=== PATIENT | male | born 1985 | race Caucasian/White ===

== ENCOUNTER 2017-01-02 19:05 | Emergency (ER) | payer BC ==
[2017-01-02 19:16] VITALS: BP 158/94; PULSE 59; RESP 16; TEMP 98.5
--- NOTE | 2017-01-02 20:01 | ED ---
Back Pain HPI - General Chief Complaint: Back Pain/Injury Stated Complaint: back and left leg pain Time Seen by Provider: 01/02/17 19:20 Source: patient Limitations: no limitations - History of Present Illness Initial Comments: Patient is a 31-year-old male presenting to the emergency department with chief complaint of acute low back pain. Patient states he was at the gym doing squats about 5 days ago when his left lower back started hurting. Patient states that pain has persisted and is now associated with numbness and tingling radiating down his left anterior leg to just below his left knee. Patient currently rates pain 7 out of 10, described as sharp and burning. Exacerbated with movement, relieved with rest. Patient denies history of similar episode in past. Patient states he doesn't like to take anything for pain. Patient denies any treatment prior to arrival. Patient denies recent illness, fevers, nausea, vomiting, shortness breath, chest pain, or abdominal pain. Patient denies IVDA drug use, urinary or fecal incontinence, or saddle anesthesia. - Related Data Allergies Allergy/AdvReac Type Severity Reaction Status Date / Time clindamycin Allergy Unknown Verified 01/02/17 19:17 Childhood Penicillins Allergy Rash/Hives Verified 01/02/17 19:17 Review of Systems ROS Statement: Those systems with pertinent positive or pertinent negative responses have been documented in the HPI. ROS Other: All systems not noted in ROS Statement are negative. Past Medical History Past Medical History: No Reported History History of Any Multi-Drug Resistant Organisms: None Reported Past Surgical History: Adenoidectomy, Tonsillectomy Additional Past Surgical History / Comment(s): inguinal hernia. thyroglossal duct cyst. Past Psychological History: No Psychological Hx Reported Smoking Status: Never smoker Past Alcohol Use History: None Reported Past Drug Use History: None Reported General Exam - General Exam Comments Initial Comments: GENERAL: Pt awake and alert, well-appearing, well-nourished, and in no acute distress. HEAD: Atraumatic, normocephalic. EYES: Pupils equal, round, sclera anicteric, conjunctiva are normal. ENT: Moist mucous membranes. NECK:Normal range of motion, supple without lymphadenopathy. LUNGS: Breath sounds clear to auscultation bilaterally. No wheezes, rales, or rhonchi. HEART: Heart S1, S2, no S3 or S4. Regular rate and rhythm. No murmurs, rubs or gallops. ABDOMEN: Soft, nontender, nondistended, normoactive bowel sounds. No guarding, no rebound. No masses or organomegaly appreciated. BACK: Patient is able to ambulate without assistance. Patient is seated on the stretcher in mild distress. No surface trauma. No vertebral tenderness. Left paraspinal tenderness to lower back. No spasm or mass. No CVA tenderness to percussion. Left SI notch tenderness. MUSCULOSKELETAL: Decreased flexion, extension, lateral bending, and rotation. Heel and toe walk with good strength. Dorsi and plantarflexion with adequate strength. Straight leg raises are negative for radiculopathy. EXTREMITIES: 2+ peripheral pulses. No edema. No calf tenderness. NEUROLOGICAL: Pt oriented x 3. Cranial nerves II through XII grossly intact. Strength and sensation grossly intact. Sensation to light touch is intact at the great toe web space. PSYCH: Normal mood, normal affect. SKIN: Warm, dry, intact. Normal turgor. No rashes or lesions. Limitations: no limitations Course Vital Signs 01/02/17 19:10 Temperature 98.5 F Pulse Rate 59 L Respiratory 16 Rate Blood Pressure 158/94 O2 Sat by Pulse 100 Oximetry Medical Decision Making - Medical Decision Making Acute lumbar radiculopathy. Lumbar sacral x-ray without acute fracture or dislocation. Patient is refusing pain medication in the emergency department. No red flags present. Patient instructed to follow-up with [facility] and avoid bed rest. Patient instructed to return to the emergency department with any new or worsening symptoms. Patient agrees with treatment plan. - Radiology Data Radiology results: report reviewed X-ray lumbosacral spine: Straightening of lumbar spine with minimal multilevel anterior spurring upper lumbar levels. No evidence of acute fracture or dislocation. Disposition Clinical Impression: Lumbar radiculopathy Disposition: HOME SELF-CARE Condition: Good Instructions: Acute Low Back Pain (ED) Additional Instructions: Continue Tylenol or Motrin for pain as needed. May apply ice or warm compresses for comfort as needed. Avoid bed rest. Follow-up with [facility] as directed. Please return to emergency department with any new or worsening symptoms. Referrals: Deja Banks MD [Primary Care Provider] - 1-2 days Kendall Soto DO [Doctor of Osteopathic Medicine] - 1-2 days Time of Disposition: 20:27
--- NOTE | 2017-01-02 20:20 | XR ---
EXAMINATION TYPE: XR lumbosacral spine min 4V DATE OF EXAM: 01/02/2017 CLINICAL HISTORY: Low back pain causing numbness and left leg TECHNIQUE: Frontal, lateral, and oblique images of the lumbar spine are obtained. COMPARISON: None FINDINGS: There are 5 lumbar type vertebral bodies identified. The lumbar spine shows straightened alignment without evidence of acute fracture or dislocation. Vertebral body heights and disk space he ights are within normal limits. . Minimal multilevel anterior spurring upper lumbar spine is present . The oblique images appear within normal limits. The overlying soft tissue appears unremarkable. IMPRESSION: Straightening of lumbar spine with minimal multilevel anterior spurring upper lumbar leve ls.
== END 2017-01-02 20:33 | disposition home or self-care (01) ==
LOC: EC 19:05
DX: M54.16 Radiculopathy, lumbar region (principal); Z88.0 Allergy status to penicillin; Z88.1 Allergy status to other antibiotic agents
CPT/HCPCS: 72110; 99283

== ENCOUNTER → 2020-12-29 | Outpatient (CLI) | payer OTHER ==
[2020-12-29 16:45] LABS: Basophils # (A) 0.06 X 10*3/uL (0.00-0.10); Eosinophils # (A) 0.48 X 10*3/uL (0.04-0.35); Eosinophils % (A) 8.1 %; HCT 51.1 % (39.6-50.0); HGB 17.1 g/dL (13.0-17.0); Lymphocytes # (A) 1.32 X 10*3/uL (0.90-5.00); Lymphocytes % (A) 22.4 %; MCH 31.1 pg (27.0-32.0); MCHC 33.5 g/dL (32.0-37.0); MCV 93.1 fL (80.0-97.0); Mean Platelet Volume 10.2 fL (9.5-12.2); Monocytes # (A) 0.67 X 10*3/uL (0.20-1.00); Monocytes % (A) 11.4 %; Neutrophils # (A) 3.35 X 10*3/uL (1.80-7.70); Neutrophils % (A) 56.8 %; Platelet Count 215 X 10*3/uL (140-440); RBC 5.49 X 10*6/uL (4.40-5.60); RDW 13.9 % (11.5-14.5)
[2020-12-29 17:08] LABS: African American GFR (CKD) 101.4 (60.0-200.0); Albumin 4.4 g/dL (3.8-4.9); Albumin/Globulin Ratio 1.78 (1.60-3.17); Anion Gap 11.8 mmol/L (4.00-12.00); BUN/Creat Ratio 17.43 Ratio (12.00-20.00); Calcium 9.5 mg/dL (8.7-10.3); Carbon Dioxide 25.3 mmol/L (21.6-31.8); Chol/HDL Ratio 3.35 Ratio; Estradiol 24.9 pg/mL; Globulin 2.5 g/dL (1.6-3.3); HDL Cholesterol 39.4 mg/dL (40.00-60.00); LDL Cholesterol,Calculated 82.3 mg/dL (0.0-131.0); Non-African American GFR(CKD) 87.5 (60.0-200.0); Potassium 4.6 mmol/L (3.5-5.5); Prostate Specific Antigen 0.5 ng/mL (0.00-2.50); T4, Free (Free Thyroxine) 0.99 ng/dL (0.800-1.800); Total Bilirubin 0.6 mg/dL (0.30-1.20); Total Protein 6.8 g/dL (6.2-8.2); Triglycerides 51.5 mg/dL (0.00-149.00); VLDL Calculation 10.3 mg/dL (5.00-40.00)
== END | disposition home or self-care (01) ==
LOC: LABWHC1 09:21
PROVIDERS: ATTEND Nurse Practitioner Family
DX: Z00.00 Encounter for general adult medical examination without abnormal findings (principal); E03.9 Hypothyroidism, unspecified; E29.1 Testicular hypofunction; R35.1 Nocturia
CPT/HCPCS: 36415; 80053; 80061; 82040; 82670; 82672; 84153; 84270; 84403; 84439; 84443; 84481; 85025

== ENCOUNTER 2021-05-29 07:57 | Emergency (ER) | payer OTHER ==
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
--- NOTE | 2021-05-29 09:15 | XR ---
EXAMINATION TYPE: XR chest 2V DATE OF EXAM: 05/29/2021 COMPARISON: NONE HISTORY: Chest pain TECHNIQUE: Frontal and lateral views of the chest are obtained. FINDINGS: There is no focal air space opacity. No evidence for pneumothorax. No pleural effusion. The cardiac silhouette size is within normal limits. The osseous structures are grossly intact. IMPRESSION: 1. No acute cardiopulmonary process.
[2021-05-29 09:44] VITALS: BP 145/87; PULSE 54; RESP 18; TEMP 97.9
== END 2021-05-29 10:25 | disposition home or self-care (01) ==
LOC: EC 07:57
DX: S80.212A Abrasion, left knee, initial encounter (principal); M54.9 Dorsalgia, unspecified; Z88.0 Allergy status to penicillin; Z88.1 Allergy status to other antibiotic agents; V43.52XA Car driver injured in collision with other type car in traffic accident, initial encounter; Y92.410 Unspecified street and highway as the place of occurrence of the external cause
CPT/HCPCS: 71046; 99284

== ENCOUNTER → 2021-06-15 | Outpatient (CLI) | payer OTHER ==
[2021-06-15 14:41] LABS: Basophils # (A) 0.05 X 10*3/uL (0.00-0.10); Basophils % (A) 0.9 %; Eosinophils # (A) 0.49 X 10*3/uL (0.04-0.35); Eosinophils % (A) 8.7 %; HCT 51.7 % (39.6-50.0); HGB 16.7 g/dL (13.0-17.0); Immature Grans, Automated 0.2 %; Lymphocytes # (A) 1.73 X 10*3/uL (0.90-5.00); Lymphocytes % (A) 30.8 %; MCH 30.9 pg (27.0-32.0); MCHC 32.3 g/dL (32.0-37.0); MCV 95.7 fL (80.0-97.0); Mean Platelet Volume 11.6 fL (9.5-12.2); Monocytes # (A) 0.69 X 10*3/uL (0.20-1.00); Monocytes % (A) 12.3 %; NRBC Per 100 WBC 0 /100 WBCS (0.0-0.0); Neutrophils # (A) 2.65 X 10*3/uL (1.80-7.70); Neutrophils % (A) 47.1 %; Platelet Count 172 X 10*3/uL (140-440); WBC 5.62 X 10*3/uL (4.50-10.00)
[2021-06-15 15:23] LABS: African American GFR (CKD) 103.7 (60.0-200.0); Albumin 4.4 g/dL (3.8-4.9); Albumin/Globulin Ratio 1.88 (1.60-3.17); Anion Gap 10.1 mmol/L (10.00-18.00); BUN/Creat Ratio 22.34 Ratio (12.00-20.00); Blood Urea Nitrogen 23.9 mg/dL (9.0-27.0); Calcium 9.7 mg/dL (8.7-10.3); Carbon Dioxide 30.4 mmol/L (20.0-27.5); Globulin 2.4 g/dL (1.6-3.3); HDL Cholesterol 43.6 mg/dL (40.00-60.00); Non-African American GFR(CKD) 89.5 (60.0-200.0); Potassium 4.9 mmol/L (3.5-5.5); T4, Free (Free Thyroxine) 1.1 ng/dL (0.800-1.800); Total Bilirubin 0.5 mg/dL (0.30-1.20); Total Protein 6.8 g/dL (6.2-8.2); Triglycerides 45.5 mg/dL (0.00-149.00)
[2021-06-15 15:38] LABS: Estradiol 20.9 pg/mL
[2021-06-15 15:40] LABS: Chol/HDL Ratio 3.14 Ratio; LDL Cholesterol,Direct Reflex 82.5 mg/dL (0.00-129.00)
== END | disposition home or self-care (01) ==
LOC: LABWHC1 09:17
PROVIDERS: ATTEND Nurse Practitioner Family
DX: Z00.00 Encounter for general adult medical examination without abnormal findings (principal); E03.9 Hypothyroidism, unspecified; E29.1 Testicular hypofunction
CPT/HCPCS: 36415; 80053; 80061; 82670; 83721; 84403; 84439; 84443; 84481; 85025

== ENCOUNTER → 2023-01-21 | Outpatient (CLI) | payer OTHER ==
--- NOTE | 2023-01-21 18:13 | XR ---
EXAMINATION TYPE: XR elbow complete RT DATE OF EXAM: 01/21/2023 5:14 PM CLINICAL INDICATION:Male, 37 years old with history of S53.401A, S46.291A; [facility] COMPARISON: None TECHNIQUE: XR elbow complete RT; elbow was examined in AP, lateral, and oblique projections. FINDINGS: No evidence of any acute osseous pathology, joint dislocation, or soft tissue swelling is n oted. No evidence of joint effusion is present. Small enthesophyte of the olecranon process. Well-co rticated osseous fragment near the medial epicondyle. IMPRESSION: No evidence of acute fracture. Consider further evaluation with MRI for soft tissue injury.
== END | disposition home or self-care (01) ==
LOC: RADXRMAIN 16:55
PROVIDERS: ATTEND Emergency Medicine
DX: S53.401A Unspecified sprain of right elbow, initial encounter (principal); S46.291A Other injury of muscle, fascia and tendon of other parts of biceps, right arm, initial encounter; X58.XXXA Exposure to other specified factors, initial encounter

== ENCOUNTER → 2023-01-25 | Outpatient (CLI) | payer OTHER ==
--- NOTE | 2023-01-29 18:48 | MR ---
EXAMINATION TYPE: MR elbow RT wo con DATE OF EXAM: 01/25/2023 COMPARISON: Right elbow radiograph 01/21/2023 HISTORY: Right elbow pain and swelling, Evaluate for ruptured distal biceps tendon TECHNIQUE: Multiplanar, multisequence images of the right elbow were acquired without contrast. FINDINGS: BONES/JOINTS: Bone marrow signal is normal. Joint spaces are maintained. Articular cartilage is mira l. No joint effusion. LIGAMENTS: The medial ligamentous structures, including the ulnar collateral ligament, are intact. La teral ligamentous structures are intact. TENDONS: The biceps tendon is completely torn at the radial tuberosity; the tendon is coiled and retr acted 9 cm. Edema within the biceps brachia muscle. The brachialis tendon is intact. Distal triceps t endon is intact. The common extensor tendon is normal. The common flexor tendon demonstrates small am ount of intrasubstance edema, relating to tendinosis. NEUROVASCULAR: Normal neurovascular structures. Cubital tunnel is normal. SOFT TISSUES: Large amount of edema within the antecubital fossa and subcutaneous fat.. No bursal dis tention. IMPRESSION: 1. Complete retracted tear distal biceps tendon. 2. Common flexor tendinosis.
== END | disposition home or self-care (01) ==
LOC: RADMRIMAIN 16:59
PROVIDERS: ATTEND Orthopaedic Surgery
DX: S46.211A Strain of muscle, fascia and tendon of other parts of biceps, right arm, initial encounter (principal); M67.823 Other specified disorders of tendon, right elbow

== ENCOUNTER 2023-02-02 10:57 | Day surgery (SDC) | payer OTHER ==
--- NOTE | 2023-01-31 08:42 | P.HPOR ---
History of Present Illness H&P Date: 01/31/23 Subjective: This is a 37 year old male that presents today for initial evaluation regarding a right elbow injury that occurred on 01/21/23 when he was at work twisting a valve and felt a pop in his elbow and had immediate pain, swelling, and bruising after. He was seen by Dr. Morelos and MRI was ordered for concern of possible distal biceps tendon rupture. 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 Physical Examination: RUE: AIN/PIN/Radial/Ulnar/Median motor intact. Radial/Ulnar/Median SILT. 2+/4 Radial/Ulnar pulses palpated. 5/5 APB, 5/5 FDI. Positive Hook test in antecubital fossa with bruising/swelling present along medial forearm. Imaging: MRI of the right elbow performed on 01/25/23 is read and interpreted by myself and demonstrates a complete distal biceps tendon rupture with 9cm of retraction . Impression: 1.)Right distal biceps tendon rupture Plan: Diagnosis and treatment options were discussed with the patient including operative and non operative options. Due to his high activity demands and age I recommend surgical intervention with right distal biceps tendon rupture repair. Risks and benefits of surgery including bleeding, infection, damage to surrounding tissue, need for further surgery, residual numbness in forearm were discussed and the patient wished to go forward with surgery. 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 We discussed post operative protocol with early range of motion depending on the tension on the repair but he is to avoid any lifting heavier than 3 lbs for the first 3 months with a focus on ROM between weeks 1 and 6 after surgery. The patient was agreeable with this plan. CC:Agueda Hays DO -Tigre Duggan DO Orthopedic Hand/Upper Extremity Surgeon Past Medical History Past Medical History: No Reported History History of Any Multi-Drug Resistant Organisms: None Reported Past Surgical History: Adenoidectomy, Tonsillectomy Additional Past Surgical History / Comment(s): inguinal hernia. thyroglossal duct cyst. Past Psychological History: No Psychological Hx Reported Smoking Status: Never smoker Past Alcohol Use History: None Reported Past Drug Use History: None Reported Medications and Allergies Home Medications Medication Instructions Recorded Confirmed Type Ibuprofen [Motrin] 600 mg PO Q6HR PRN #40 day 05/29/21 Rx methocarbamoL [Robaxin] 1,000 mg PO TID PRN 5 Days #30 tab 05/29/21 Rx Allergies Allergy/AdvReac Type Severity Reaction Status Date / Time clindamycin Allergy Unknown Verified 05/29/21 08:01 Childhood Penicillins Allergy Rash/Hives Verified 05/29/21 08:01 Physical Examination Osteopathic Statement: *. No significant issues noted on an osteopathic structural exam other than those noted in the History and Physical/Consult.
[~2023-02-02 10:57] MED LIST: DEXAMETHASONE SOD PHOSPHATE 4 MG/ML 1 ML VIAL IV ONE; HYDROmorphone 0.5 MG/0.5 ML SYRINGE IVP PRN; LACTATED RINGERS 1,000 ML IV SCH; ONDANSETRON 4 MG/2 ML VIAL IVP ONE
[2023-02-02] MEDS ORDERED: BUPIVACAINE (PF) 0.5% 30 ML VIAL INTRAARTIC ONE ×2 (11:20→13:21)
[2023-02-02] MEDS ORDERED: HYDROmorphone (PF) 1 MG/ML ONE (11:27)
[2023-02-02] MEDS ORDERED: PHENYLEPHRINE-0.9% NACL SYG 1,000 MCG/10 ML SYRINGE ONE (11:27)
[2023-02-02] MEDS ORDERED: MIDAZOLAM 2 MG/2 ML VIAL ONE (11:27)
[2023-02-02] MEDS ORDERED: LIDOCAINE 1% INJ 10MG/ML (20 ML MDV) ONE (11:27)
[2023-02-02] MEDS ORDERED: fentaNYL (PF) 50 MCG/ML 2 ML AMP ONE (11:27)
[2023-02-02] MEDS ORDERED: KETOROLAC 15 MG/ML 1 ML VIAL ONE (11:27)
[2023-02-02] MEDS ORDERED: PROPOFOL 10 MG/ML 20 ML VIAL IV ONE (11:27)
[2023-02-02] MEDS ORDERED: LACTATED RINGERS 1,000 ML IV ONE (12:59)
--- NOTE | 2023-02-02 13:40 | P.OP ---
Date of Procedure: 02/02/23 Preoperative Diagnosis: Right distal biceps tendon rupture Postoperative Diagnosis: Right distal biceps tendon rupture Procedure(s) Performed: Right distal biceps tendon repair Implants: Arthrex distal biceps suture button Anesthesia: EBONYA Surgeon: Tigre Duggan Dipper Operator #1: Ashok Villaseñor Estimated Blood Loss (ml): 0 Pathology: none sent Condition: stable Disposition: PACU Description of Procedure: This is a 37 year old male with a history of a right distal biceps tendon rupture that occurred while twisting a valve. He presents today for right distal biceps tendon avulsion repair. Risks and benefits of surgery were discussed with the patient including bleeding, damage to surrounding tissue, infection, paresthesias, need for further surgery as well as risks of anesthesia including pulmonary embolism and even and the patient wished to proceed with surgical intervention. The patients was seen in the pre-operative area by myself. Consent and H&P were completed and updated. The correct extremity was marked in the pre-operative area by myself and all other questions were answered. Patient received an upper extremity nerve block by the department of anesthesia. He then was brought to the operating room by the department of anesthesia. He was transferred to the operative table and a rolling hand table was brought to the side of the operative extremity. The patient was then drifted off to sleep by the department of anesthesia. A nonsterile tourniquet was then applied to the operative extremity and the right upper extremity was then prepped and draped in normal sterile fashion. Pre-operative time out was performed indicating the correct patient, procedure and laterality. All in the room agreed. Pre-operative antibiotics were given prior to skin incision. The operative extremity was the exsanguinated with an esmarch bandage and the tourniquet was inflated to 250mmHg. 15 blade scalpel was used to make a 4cm transverse incision 3 cm distal to the anterior elbow antecubital fossa crease. Blunt dissection was then performed in subcutaneous tissues, retractors were placed taking care to not put excessive force laterally to avoid pressure on the LABCN. Seroma was identified and the distal end of the biceps tendon was identified just proximal to the bicipital grove with adhesions formed to the surrounding lesley and vascular structures which were carefully dissected, the end of the tendon was then grasped with an Tamra clamp. Edges were trimmed of degenerative tissue to create a more profiled distal tip. A number 2 looped fiberwire was then used to sequentially grasp the tendon starting 2.5cm proximal to the distal end. The last stitch was placed in a locking fashion. Tendon sizer was then utilized the distal tendon was able to fit through a 7mm hole. Attention was then brought back to the antecubital fossa and deeper dissection was taken down to the radial tuberosity. Tendon remnants were debrided carefully with rongeur. The forearm was then maximally supinated to reveal the bicipital tuberosity on the radius in order to move the PIN nerve as far radial as possible. A 3.2mm guide pin was then inserted bicortically into the radial tuberosity aimed 30 degrees ulnarly to avoid PIN damage. Correct placement was then confirmed on flouroscopy. A 8mm drill was then used to drill the near cortex only. The wound was then copiously irrigated. The free ends of the suture where then passed through the arthrex cortical button to engage the tension slide mechanism. Cortical button was placed into the button inserted and inserted through the drill hole and deployed. Tension was then applied to snug the cortical button flush against the dorsal cortex. The free suture limbs were then tensioned to fully dock the tendon in the bone tunnel. A free needle was then used to pass one limb through the tendon and a knot was tied. Mini C arm was then used to confirm that the button had flipped and was lying flush against the cortex. The wound was then irrigated. Closure was performed with interrupted 4-0 monocryl suture followed by a running subcuticular suture. Exofin glue was then applied to the wound. 4x4s, webril and a posterior splint with the elbow in slight flexion was applied. The tourniquet was let down and the hand had immediate normal perfusion. The patient was then woken and transferred to PACU in stable condition. Ashok GIMENEZ was present for the case and aided in ass istance in hardware placement and protection of vital neurovascular structures. Tigre Duggan DO Orthopedic Hand/Upper Extremity Surgeon
[2023-02-02 14:16] VITALS: RESP 16; TEMP 98.6
[2023-02-02 16:26] VITALS: BP 133/78; PULSE 79
== END 2023-02-02 15:50 | disposition home or self-care (01) ==
LOC: OR 10:57
PROVIDERS: ATTEND Orthopaedic Surgery Hand Surgery
DX: S46.211A Strain of muscle, fascia and tendon of other parts of biceps, right arm, initial encounter (principal); E07.9 Disorder of thyroid, unspecified; Z98.890 Other specified postprocedural states; Z79.899 Other long term (current) drug therapy; Z88.0 Allergy status to penicillin; Z88.1 Allergy status to other antibiotic agents; X58.XXXA Exposure to other specified factors, initial encounter
CPT/HCPCS: 24342; C1713; J2250; J1100; J0690; J2405; J2001; J3010; J1170; J1885; J2704; J2371; J0665

== ENCOUNTER 2023-05-01 10:57 | Observation (INO) | payer OTHER ==
--- NOTE | 2023-05-01 11:25 | ED ---
General Adult HPI - General Chief complaint: Abdominal Pain Stated complaint: diarrhea Time Seen by Provider: 05/01/23 11:09 Source: patient, family, RN notes reviewed Mode of arrival: ambulatory Limitations: no limitations - History of Present Illness Initial comments: Patient is a pleasant 37-year-old male presenting to the emergency department with concerns with abdominal symptoms. Onset of symptoms was 3 days ago. Patient has had fever for the first 2 days. Patient is having multiple episodes of diarrhea. No nausea or vomiting. Patient does have abdominal discomfort. Discomfort is mild at this time. Discomfort is mostly with diarrhea and cramping. Patient also has discomfort in his back with the symptoms which is similar to previous problems years ago with diarrhea. - Related Data Home Medications Medication Instructions Recorded Confirmed Levothyroxine Sodium 100 mcg PO QAM 01/31/23 02/02/23 Liothyronine Sodium 25 mcg PO QAM 01/31/23 02/02/23 Allergies Allergy/AdvReac Type Severity Reaction Status Date / Time clindamycin Allergy Unknown Verified 02/02/23 11:18 Childhood Penicillins Allergy Rash/Hives Verified 02/02/23 11:18 Review of Systems ROS Statement: Those systems with pertinent positive or pertinent negative responses have been documented in the HPI. ROS Other: All systems not noted in ROS Statement are negative. Constitutional: Reports: as per HPI, fever Eyes: Denies: eye pain ENT: Denies: ear pain Respiratory: Denies: cough, dyspnea Cardiovascular: Denies: chest pain Endocrine: Denies: fatigue Gastrointestinal: Reports: as per HPI, diarrhea. Denies: vomiting Past Medical History Past Medical History: Thyroid Disorder Additional Past Medical History / Comment(s): Hypogonadism History of Any Multi-Drug Resistant Organisms: None Reported Past Surgical History: Adenoidectomy, Ear Surgery, Hernia Repair, Orthopedic Surgery, Tonsillectomy Additional Past Surgical History / Comment(s): Bilateral myringotomy and tubes with hyroglossal duct cyst, L inguinal hernia, L knee fracture/surgery Past Anesthesia/Blood Transfusion Reactions: No Reported Reaction Past Psychological History: No Psychological Hx Reported Smoking Status: Never smoker - Past Family History Father Family Medical History: Hypertension Mother Family Medical History: Hyperlipidemia, Hypertension General Exam Limitations: no limitations General appearance: alert, in no apparent distress Head exam: Present: normocephalic Eye exam: Present: normal appearance Neck exam: Present: normal inspection Respiratory exam: Present: normal lung sounds bilaterally Cardiovascular Exam: Present: regular rate, normal rhythm Expanded Peripheral pulses: 2+: Posterior Tibialis (R), Posterior Tibialis (L) GI/Abdominal exam: Present: soft, tenderness (Mild tenderness lower abdomen) Extremities exam: Present: normal inspection Neurological exam: Present: alert Psychiatric exam: Present: normal affect, normal mood Skin exam: Present: normal color Course Vital Signs 05/01/23 11:03 Temperature 98.8 F Pulse Rate 77 Respiratory 20 Rate Blood Pressure 148/100 O2 Sat by Pulse 98 Oximetry Medical Decision Making - Medical Decision Making Was pt. sent in by a medical professional or institution (, PA, DRUM SANDER SETTER, urgent care, hospital, or fdc...) When possible be specific @ -No Did you speak to anyone other than the patient for history (EMS, parent, family, police, friend...)? What history was obtained from this source @ - is present and helps provide history including onset Did you review nursing and triage notes (agree or disagree)? Why? @ -I reviewed and agree with nursing and triage notes Were old charts reviewed (outside hosp., previous admission, EMS record, old EKG, old radiological studies, urgent care reports/EKG's, fdc records)? Report findings @ -No old charts were reviewed Differential Diagnosis (chest pain, altered mental status, abdominal pain women, abdominal pain men, vaginal bleeding, weakness, fever, dyspnea, syncope, headache, dizziness, GI bleed, back pain, seizure, CVA, palpatations, mental hea lth, musculoskeletal)? @ -Differential Abdominal Pain Men: Appendicitis, cholecystitis, diverticulosis, ischemic bowel, pancreatitis, hepatitis, UTI, gastroenteritis, AAA, incarcerated hernia, bowel obstruction, constipation, inflammatory bowel, hepatitis, peptic ulcer disease, splenic infarction, perforated viscus, testicular torsion, this is not meant to be an all-inclusive list EKG interpreted by me (3pts min.). @ -As above X-rays interpreted by me (1pt min.). @ -None done CT interpreted by me (1pt min.). @ -CT scan shows colon wall thickening U/S interpreted by me (1pt. min.). @ -None done What testing was considered but not performed or refused? (CT, X-rays, U/S, labs)? Why? @ -None What meds were considered but not given or refused? Why? @ -None Did you discuss the management of the patient with other professionals (professionals i.e. , PA, DRUM SANDER SETTER, lab, RT, psych nurse, social media content specialist, vice president mission integration, teacher, biological technical officer, caser up)? Give summary @ - Dr. Meza, who I am a covering doctor and Was smoking cessation discussed for >3mins.? @ -No Was critical care preformed (if so, how long)? @ -No Were there social determinants of health that impacted care today? How? (H omelessness, low income, unemployed, alcoholism, drug addiction, transportation, low edu. Level, literacy, decrease access to med. care, longterm, rehab)? @ -No Was there de-escalation of care discussed even if they declined (Discuss DNR or withdrawal of care, Hospice)? DNR status @ -No What co-morbidities impacted this encounter? (DM, HTN, Smoking, COPD, CAD, Cancer, CVA, ARF, Chemo, Hep., AIDS, mental health diagnosis, sleep apnea, morbid obesity)? @ -None Was patient admitted / discharged? Hospital course, mention meds given and route, prescriptions, significant lab abnormalities, going to OR and other pertinent info. @ -Patient presents with abdominal pain and diarrhea. CT scan shows colitis. Patient is having some bleeding in the emergency department and will be kept. Admission orders written. Undiagnosed new problem with uncertain prognosis? @ -No Drug Therapy requiring intensive monitoring for toxicity (Heparin, Nitro, Insulin, Cardizem)? @ -No Were any procedures done? @ -No Diagnosis/symptom? @ -Colitis Acute, or Chronic, or Acute on Chronic? @ -Acute Uncomplicated (without systemic symptoms) or Complicated (systemic symptoms)? @ -Default Side effects of treatment? @ -No Exacerbation, Progression, or Severe Exacerbation? @ -No Poses a threat to life or bodily function? How? (Chest pain, USA, ID, pneumonia, PE, COPD, DKA, ARF, appy, cholecystitis, CVA, Diverticulitis, Homicidal, Suicidal, threat to staff... and all critical care pts) @ -No - Lab Data Result diagrams: 05/01/23 11:26 05/01/23 11:26 Lab Results 02/02/1105/01/23 05/01/23 Range/Units 11:26 11:26 11:26 WBC 8.2 (3.8-10.6) k/uL RBC 5.46 (4.30-5.90) m/uL Hgb 16.6 (13.0-17.5) gm/dL Hct 48.8 (39.0-53.0) % MCV 89.4 (80.0-100.0) fL MCH 30.4 (25.0-35.0) pg MCHC 34.0 (31.0-37.0) g/dL RDW 13.8 (11.5-15.5) % Plt Count 153 (150-450) k/uL MPV 7.2 Neutrophils % 69 % Lymphocytes % 14 % Monocytes % 12 % Eosinophils % 1 % Basophils % 0 % Neutrophils # 5.6 (1.3-7.7) k/uL Lymphocytes # 1.1 (1.0-4.8) k/uL Monocytes # 1.0 (0-1.0) k/uL Eosinophils # 0.1 (0-0.7) k/uL Basophils # 0.0 (0-0.2) k/uL PT 11.1 (10.0-12.5) sec INR 1.0 (<1.2) APTT 25.5 (22.0-30.0) sec Sodium 137 (137-145) mmol/L Potassium 5.1 (3.5-5.1) mmol/L Chloride 105 (98-107) mmol/L Carbon Dioxide 26 (22-30) mmol/L Anion Gap 6 mmol/L BUN 13 (9-20) mg/dL Creatinine 0.93 (0.66-1.25) mg/dL Est GFR (CKD-EPI)AfAm >90 (>60 ml/min/1.73 sqM) Est GFR (CKD-EPI)NonAf >90 (>60 ml/min/1.73 sqM) Glucose 91 (74-99) mg/dL Calcium 9.0 (8.4-10.2) mg/dL Total Bilirubin 0.8 (0.2-1.3) mg/dL AST 74 H (17-59) U/L ALT 62 H (4-49) U/L Alkaline Phosphatase 34 L (38-126) U/L Total Protein 7.1 (6.3-8.2) g/dL Albumin 3.9 (3.5-5.0) g/dL Amylase 47 (30-110) U/L Lipase 84 (23-300) U/L Disposition Clinical Impression: Colitis Disposition: ADMITTED IP TO THIS HOSP Is patient prescribed a controlled substance at d/c from ED?: No Time of Disposition: 15:31
[2023-05-01] MEDS: PANTOPRAZOLE 40 MG/10 ML VIAL IVP STA (11:33)
[2023-05-01] MEDS: SODIUM CHLORIDE 0.9% 1,000 ML IV STA (11:33)
[2023-05-01] MEDS: DICYCLOMINE 10 MG CAP PO STA (11:33)
[2023-05-01 11:34] LABS: Basophils % (A) 0 %; Eosinophils # (A) 0.1 k/uL (0-0.7); Eosinophils % (A) 1 %; HCT 48.8 % (39.0-53.0); HGB 16.6 gm/dL (13.0-17.5); Lymphocytes # (A) 1.1 k/uL (1.0-4.8); Lymphocytes % (A) 14 %; MCH 30.4 pg (25.0-35.0); MCV 89.4 fL (80.0-100.0); Mean Platelet Volume 7.2; Monocytes % (A) 12 %; Neutrophils # (A) 5.6 k/uL (1.3-7.7); Neutrophils % (A) 69 %; Platelet Count 153 k/uL (150-450); RBC 5.46 m/uL (4.30-5.90); RDW 13.8 % (11.5-15.5); WBC 8.2 k/uL (3.8-10.6)
[2023-05-01 11:44] LABS: ALT 62 U/L (4-49); African American GFR (CKD) >90 (>60 ml/min/1.73 sqM); Albumin 3.9 g/dL (3.5-5.0); Amylase 47 U/L (30-110); Anion Gap 6 mmol/L; Blood Urea Nitrogen 13 mg/dL (9-20); Carbon Dioxide 26 mmol/L (22-30); Chloride 105 mmol/L (98-107); Glucose 91 mg/dL (74-99); Lipase 84 U/L (23-300); Non-African American GFR(CKD) >90 (>60 ml/min/1.73 sqM); Partial Thromboplastin Time 25.5 sec (22.0-30.0); Prothrombin Time 11.1 sec (10.0-12.5); Sodium 137 mmol/L (137-145); Total Bilirubin 0.8 mg/dL (0.2-1.3); Total Protein 7.1 g/dL (6.3-8.2)
[2023-05-01 11:48] LABS: AST 74 U/L (17-59); Alkaline Phosphatase 34 U/L (38-126); Potassium 5.1 mmol/L (3.5-5.1)
--- NOTE | 2023-05-01 15:01 | CT ---
EXAMINATION TYPE: CT abdomen pelvis w con CT DLP: 1406.6 mGycm, Automated exposure control for dose reduction was used. DATE OF EXAM: 05/01/2023 2:54 PM COMPARISON: CT abdomen pelvis most recent from CLINICAL INDICATION:Male, 37 years old with history of abdominal pain. TECHNIQUE: Axial CT of the abdomen and pelvis. Sagittal and coronal reformats were created on a [employer] workstation. Contrast used:100 ml mL of Isovue 300 with IV Contrast, (none if empty) Oral contrast used: without Oral Contrast (none if empty) FINDINGS: LOWER CHEST: Unremarkable ABDOMEN LIVER: Unremarkable GALLBLADDER AND BILE DUCTS: Unremarkable. PANCREAS: Unremarkable. SPLEEN: Unremarkable. ADRENAL GLANDS: Unremarkable. KIDNEYS AND URETERS: No evidence of hydronephrosis or renal calculus. The ureters are unremarkable. PELVIS BLADDER: Unremarkable REPRODUCTIVE: Unremarkable. ABDOMEN & PELVIS STOMACH AND BOWEL: Stomach and duodenum are unremarkable. Diffuse mild colonic wall thickening with e dematous changes, associated prominence of the pericolonic vasculature is identified No evidence of b owel obstruction. PERITONEUM/RETROPERITONEUM: No evidence of pneumoperitoneum or free fluid. VASCULATURE: No evidence of aortic aneurysm. MUSCULOSKELETAL: Remote compression deformities of the T12 vertebral body with approximately 50% heig ht loss. Moderate disc degeneration changes are present throughout the thoracolumbar spine. LYMPH NODES: Prominent nonenlarged mesenteric lymph nodes are identified SOFT TISSUE/ABDOMINAL WALL: Unremarkable IMPRESSION: 1. Diffuse colonic wall thickening with associated edema. Findings are most likely related to underl jim infectious/inflammatory colitis. 2. Remote compression deformity of the T12 vertebral body with 50% height loss.
[2023-05-01] MEDS ORDERED: NALOXONE 0.4 MG/ML 1 ML VIAL IV PRN (15:42)
[2023-05-01] MEDS ORDERED: HYDROcodone/APAP 5-325MG 1 EACH TAB PO PRN (15:42)
[2023-05-01] MEDS ORDERED: traMADol 50 MG TAB PO PRN (15:42)
[2023-05-01] MEDS ORDERED: HYDROmorphone 1 MG/ML 1 ML SYRINGE IVP PRN (15:42)
[2023-05-01] MEDS: SODIUM CHLORIDE 0.9% 1,000 ML IV SCH (16:12)
[2023-05-01 21:05] LABS: HCT 46.9 % (39.0-53.0); HGB 15.5 gm/dL (13.0-17.5); MCV 90.8 fL (80.0-100.0); Mean Platelet Volume 7.5; Platelet Count 148 k/uL (150-450); RBC 5.17 m/uL (4.30-5.90); RDW 13.8 % (11.5-15.5); WBC 6.7 k/uL (3.8-10.6)
[2023-05-01] MEDS: PANTOPRAZOLE 40 MG/10 ML VIAL IV SCH (21:21)
[2023-05-01 22:04] LABS: Eosinophils # (M) 0.13 k/uL (0-0.7); Lymphocytes # (M) 0.94 k/uL (1.0-4.8); Monocytes # (M) 1.61 k/uL (0-1.0); Neutrophils # (M) 4.02 k/uL (1.3-7.7); Neutrophils % (M) 60 %; Nucleated Red Blood Cells 0 /100 WBC (0-0); Total Cells Counted 100
[2023-05-02 02:32] VITALS: RESP 16
[2023-05-02] MEDS ORDERED: PANTOPRAZOLE 40 MG/10 ML VIAL IV SCH (09:00)
[2023-05-02] MEDS: LEVOTHYROXINE 100 MCG TAB PO SCH (10:52)
[2023-05-02] MEDS: LIOTHYRONINE SODIUM 5 MCG TAB PO SCH (10:52)
[2023-05-02 11:01] LABS: Basophils # (A) 0.03 X 10*3/uL (0.00-0.10); Basophils % (A) 0.5 %; Eosinophils # (A) 0.13 X 10*3/uL (0.04-0.35); HCT 47.8 % (39.6-50.0); Lymphocytes # (A) 1.21 X 10*3/uL (0.90-5.00); Lymphocytes % (A) 18.9 %; MCH 29.9 pg (27.0-32.0); MCHC 33.5 g/dL (32.0-37.0); MCV 89.2 FL (80.0-97.0); Mean Platelet Volume 9.6 FL (9.5-12.2); Monocytes # (A) 1.19 X 10*3/uL (0.20-1.00); Monocytes % (A) 18.6 %; NRBC Per 100 WBC 0 X 10*3/uL (0.00-0.01); Neutrophils # (A) 3.83 X 10*3/uL (1.80-7.70); Neutrophils % (A) 59.8 %; Platelet Count 177 X 10*3/uL (140-440); RBC 5.36 X 10*6/uL (4.40-5.60); RDW 13.9 % (11.5-14.5)
[2023-05-02] MEDS: metroNIDAZOLE-NS PMX 500 MG in SALINE 1 100ML.BAG IVPB SCH (11:04)
[2023-05-02 11:11] LABS: Blood Urea Nitrogen 9.9 mg/dL (9.0-27.0); Glucose 85 mg/dL (70-110)
[2023-05-02 11:12] LABS: ALT 46 U/L (10-49); AST 29 U/L (14-35); Albumin 3.8 g/dL (3.8-4.9); Albumin/Globulin Ratio 1.58 Ratio (1.60-3.17); Alkaline Phosphatase 43 U/L (41-126); Carbon Dioxide 26.7 mmol/L (21.6-31.8); Chloride 101 mmol/L (96-109); Globulin 2.4 g/dL (1.6-3.3); Potassium 4.3 mmol/L (3.5-5.5); Sodium 138 mmol/L (135-145); Total Bilirubin 0.5 mg/dL (0.3-1.2); Total Protein 6.2 g/dL (6.2-8.2)
--- NOTE | 2023-05-02 11:52 | P.HPIM ---
History of Present Illness H&P Date: 05/02/23 History of present illness; patient 37-year-old gentleman past medical significant for hypothyroidism from the ER because of abdominal pain. Patient stated the symptoms started 3 days ago when he started experiencing cramping abdominal pain. Abdominal pain was generalized, associated with multiple bouts of diarrhea, patient was complaining of blood in the stools.. There was complaint of fever but no chills. Denied any nausea or vomiting. There was no complaint of chest pain or shortness of breath. No complaint of sick contacts. Because of the symptoms, patient went to the ER Initial lab work done in the ER showed WBC 8.2, hemoglobin 16.6, platelet count 153, sodium 137, calcium 5.1, BUN 13, creatinine 0.93, glucose 91, CT abdominal pelvis done showed diffuse colonic wall thickening with associated edema, associated infectious colitis Patient admitted to internal medicine service REVIEW OF SYSTEMS: CONSTITUTIONAL: As mentioned above HEENT: No recent visual problems or hearing problems. Denied any sore throat. CARDIOVASCULAR: No chest pain, orthopnea, PND, no palpitations, no syncope. PULMONARY: No shortness of breath, no cough, no hemoptysis. GASTROINTESTINAL: As mentioned above NEUROLOGICAL: No headaches, no weakness, no numbness. HEMATOLOGICAL: Denies any bleeding or petechiae. GENITOURINARY: Denies any burning micturition, frequency, or urgency. MUSCULOSKELETAL/RHEUMATOLOGICAL: Denies any joint pain, swelling, or any muscle pain. ENDOCRINE: Denies any polyuria or polydipsia. The rest of the 14-point review of systems is negative. PHYSICAL EXAMINATION: GENERAL: The patient is alert and oriented x3, not in any acute distress. Well developed, well nourished. HEENT: Pupils are round and equally reacting to light. EOMI. No scleral icterus. No conjunctival pallor. Normocephalic, atraumatic. No pharyngeal erythema. No thyromegaly. CARDIOVASCULAR: S1 and S2 present. No murmurs, rubs, or gallops. PULMONARY: Chest is clear to auscultation, no wheezing or crackles. ABDOMEN: Soft, nontender, nondistended, normoactive bowel sounds. No palpable organomegaly. MUSCULOSKELETAL: No joint swelling or deformity. EXTREMITIES: No cyanosis, clubbing, or pedal edema. NEUROLOGICAL: Gross neurological examination did not reveal any focal deficits. SKIN: No rashes. Assessment and plan Acute colitis Hypothyroidism Monitor vital signs Monitor CBC Monitor CMP Continue IV fluids continue antiemetics Continue Bentyl Start Flagyl Ordered for stool for C. difficile Consult GI Labs and medication were reviewed.. Continue same treatment. Continue with symptomatic treatment. Resume home medication. Monitor labs and vitals. DVT and GI prophylaxis. Further recommendations as per clinical course of the patient Dictation was produced using [employer] dictation software. please excuse any grammatical, word or spelling errors. Past Medical History Past Medical History: Thyroid Disorder Additional Past Medical History / Comment(s): Hypogonadism History of Any Multi-Drug Resistant Organisms: None Reported Past Surgical History: Adenoidectomy, Ear Surgery, Hernia Repair, Orthopedic Surgery, Tonsillectomy Additional Past Surgical History / Comment(s): Bilateral myringotomy and tubes with hyroglossal duct cyst, L inguinal hernia, L knee fracture/surgery Past Anesthesia/Blood Transfusion Reactions: No Reported Reaction Past Psychological History: No Psychological Hx Reported Additional Psychological History / Comment(s): Resides with spouse and children Smoking Status: Never smoker Past Alcohol Use History: None Reported Past Drug Use History: None Reported - Past Family History Father Family Medical History: Hypertension Mother Family Medical History: Hyperlipidemia, Hypertension Medications and Allergies Home Medications Medication Instructions Recorded Confirmed Type Levothyroxine Sodium 100 mcg PO DAILY 01/31/23 05/01/23 History Liothyronine Sodium 25 mcg PO DAILY 01/31/23 05/01/23 History Anastrozole [Arimidex] 1 mg PO TUTHSA 05/01/23 05/01/23 History Testosterone Cypionate 100 mg IM MOFR 05/01/23 05/01/23 History [Depo-Testosterone] Allergies Allergy/AdvReac Type Severity Reaction Status Date / Time clindamycin Allergy Unknown Verified 05/01/23 16:13 Childhood Penicillins Allergy Rash/Hives Verified 05/01/23 16:13 Physical Exam Vitals: Vital Signs Temp Pulse Pulse Resp BP BP BP 05/02/23 07:05 98.2 F 68 16 121/70 05/02/23 00:59 98.7 F 71 16 130/71 05/01/23 21:21 69 05/01/23 17:57 99.0 F 69 17 132/82 05/01/23 17:21 98.1 F 81 18 144/86 05/01/23 16:13 67 18 136/85 05/01/23 11:03 98.8 F 77 20 148/100 Pulse Ox 05/02/23 07:05 96 05/02/23 00:59 97 05/01/23 21:21 05/01/23 17:57 99 05/01/23 17:21 97 05/01/23 16:13 97 05/01/23 11:03 98 Intake and Output 05/01/23 05/02/23 05/02/23 22:59 06:59 14:59 Other: Voiding Method Toilet # Voids 1 1 Weight 108.862 kg Results CBC & Chem 7: 05/02/23 07:34 05/02/23 07:34 Labs: Abnormal Lab Results - Last 24 Hours (Table) 05/01/23 05/01/23 Range/Units 11:26 20:20 Plt Count 148 L (150-450) k/uL Lymphocytes # (Manual) 0.94 L (1.0-4.8) k/uL Monocytes # (Manual) 1.61 H (0-1.0) k/uL AST 74 H (17-59) U/L ALT 62 H (4-49) U/L Alkaline Phosphatase 34 L (38-126) U/L Thrombosis Risk Factor Assmnt - Choose All That Apply Any of the Below Risk Factors Present?: Yes Each Factor Represents 1 point: Obesity (BMI >25) Thrombosis Risk Factor Assessment Total Risk Factor Score: 1 Thrombosis Risk Factor Assessment Level: Low Risk
--- NOTE | 2023-05-02 16:19 | P.CONS ---
History of Present Illness - Reason for Consult Consult date: 05/02/23 Colitis Requesting physician: Jameson Pantoja - Chief Complaint Diarrhea, abdominal pain - History of Present Illness 37-year-old male who presented to the emergency department yesterday for abdominal pain and diarrhea for the past 3 to 4 days. Patient denies any history of ulcerative colitis or Crohn's disease. He had a CT of the abdomen and colon with contrast reporting diffuse colonic wall thickening with associated edema. Findings are most likely related to underlying infectious/inflammatory colitis. Gastroenterology was consulted for colitis. Patient states he is continuing to have diarrhea about every hour however much smaller amounts. He states diarrhea started he then started having rectal bleeding and blood in his stool on Tuesday and came into the emergency department for further evaluation. He states that the bleeding has stopped at this time. He did have associated abdominal pain which is improving mostly no cramping. No nausea or vomiting. Does not recall any sick contacts. No history of colonoscopy. He was started on IV Flagyl. He has been afebrile. No leukocytosis. Hemoglobin stable at 16 Review of Systems REVIEW OF SYSTEMS: CARDIOPULMONARY: No chest pain or shortness of breath. Gastrointestinal: Abdominal pain and cramping lower abdomen. Associated with frequent diarrhea, previous bloody stool now nonbloody. No nausea or vomiting. No hematemesis, coffee-ground emesis. GENITOURINARY: No dysuria or hematuria. MUSCULOSKELETAL: Reports normal range of motion. SKIN: No rashes. No jaundice. ENDOCRINE: No chills, fevers. No excessive weight gain or loss. No polydipsia or polyuria. PSYCHIATRIC: Unremarkable. NEUROLOGY: No change in mental status. Denies dizziness, headache. ENT: Vision unremarkable. CONSTITUTIONAL: No recent weight loss. No fever, chills, night sweats. Past Medical History Past Medical History: Thyroid Disorder Additional Past Medical History / Comment(s): Hypogonadism History of Any Multi-Drug Resistant Organisms: None Reported Past Surgical History: Adenoidectomy, Ear Surgery, Hernia Repair, Orthopedic Surgery, Tonsillectomy Additional Past Surgical History / Comment(s): Bilateral myringotomy and tubes with hyroglossal duct cyst, L inguinal hernia, L knee fracture/surgery Past Anesthesia/Blood Transfusion Reactions: No Reported Reaction Past Psychological History: No Psychological Hx Reported Additional Psychological History / Comment(s): Resides with spouse and children Smoking Status: Never smoker Past Alcohol Use History: None Reported Past Drug Use History: None Reported - Past Family History Father Family Medical History: Hypertension Mother Family Medical History: Hyperlipidemia, Hypertension Medications and Allergies Home Medications Medication Instructions Recorded Confirmed Type Levothyroxine Sodium 100 mcg PO DAILY 01/31/23 05/01/23 History Liothyronine Sodium 25 mcg PO DAILY 01/31/23 05/01/23 History Anastrozole [Arimidex] 1 mg PO TUTHSA 05/01/23 05/01/23 History Testosterone Cypionate 100 mg IM MOFR 05/01/23 05/01/23 History [Depo-Testosterone] Allergies Allergy/AdvReac Type Severity Reaction Status Date / Time clindamycin Allergy Unknown Verified 05/01/23 16:13 Childhood Penicillins Allergy Rash/Hives Verified 05/01/23 16:13 Physical Exam Vitals: Vital Signs Temp Pulse Pulse Resp BP BP BP 05/02/23 07:47 16 05/02/23 07:05 98.2 F 68 16 121/70 05/02/23 00:59 98.7 F 71 16 130/71 05/01/23 21:21 69 05/01/23 17:57 99.0 F 69 17 132/82 05/01/23 17:21 98.1 F 81 18 144/86 05/01/23 16:13 67 18 136/85 05/01/23 11:03 98.8 F 77 20 148/100 Pulse Ox 05/02/23 07:47 05/02/23 07:05 96 05/02/23 00:59 97 05/01/23 21:21 05/01/23 17:57 99 05/01/23 17:21 97 05/01/23 16:13 97 05/01/23 11:03 98 Intake and Output 05/01/23 05/02/23 05/02/23 22:59 06:59 14:59 Other: Voiding Method Toilet Toilet # Voids 1 1 Weight 108.862 kg General appearance: The patient is alert, oriented, appears in no acute distress. HET: Head is normocephalic and atraumatic. Conjunctiva pink. Sclera anicteric. Neck: Supple without lymphadenopathy. Trachea midline. Heart: Regular. Lungs: Equal expansion, normal respiratory effort. Abdomen: Soft, lower abdominal tenderness, nondistended with bowel sounds. No guarding or rigidity. Skin: No rashes. No jaundice. Extremities: Normal skin color and turgor. No pedal edema. Neurological: No focal deficits. Alert and oriented x3. Results CBC & Chem 7: 05/02/23 07:34 05/02/23 07:34 Labs: Abnormal Lab Results - Last 24 Hours (Table) 05/01/23 05/01/23 Range/Units 11:26 20:20 Plt Count 148 L (150-450) k/uL Lymphocytes # (Manual) 0.94 L (1.0-4.8) k/uL Monocytes # (Manual) 1.61 H (0-1.0) k/uL AST 74 H (17-59) U/L ALT 62 H (4-49) U/L Alkaline Phosphatase 34 L (38-126) U/L Comments: CT abdomen pelvis reports diffuse colonic wall thickening with associated edema. Findings are most likely related to underlying infectious/inflammatory colitis. Remote compression deformity of the T12 vertebral body with 50% height loss Assessment and Plan (1) Colitis Narrative/Plan: 37-year-old male presenting with acute onset abdominal cramping and pain and diarrhea followed by bloody diarrhea x 1 day duration. He has had ongoing diarrhea for the last 3 to 4 days, occurring hourly however starting to improve. He was started on IV Flagyl. No nausea or vomiting, he is afebrile and no leukocytosis. Unclear etiology however likely infectious as to acute onset no history of inflammatory bowel disease. Symptoms are improving would recommend continuing IV antibiotic with Flagyl. Increasing diet slowly. C. difficile negative. Stool cultures collected and pending. Current Visit: Yes Status: Acute Code(s): K52.9 - NONINFECTIVE GASTROENTERITIS AND COLITIS, UNSPECIFIED SNOMED Code(s): 98047634 Plan: 1. Continue symptomatic and supportive care 2. Continue IV Flagyl 3. Advance to full liquid diet 4. C. difficile and stool cultures ordered 5. No plans on endoscopic evaluation at this time Thank you for this consultation, we will continue to follow. Dr. Tavia Aponte I agree with the dictator's note, documented as a scribe by Viv Lugo
[2023-05-02] MEDS: CIPROFLOXACIN HCL 500 MG TAB PO SCH (20:13)
[2023-05-03 07:19] VITALS: BP 112/69; PULSE 68; TEMP 97.7
--- NOTE | 2023-05-03 09:13 | P.PN ---
Subjective Progress Note Date: 05/03/23 Principal diagnosis: Colitis 37-year-old male who presented to the emergency department yesterday for abdominal pain and diarrhea for the past 3 to 4 days. Patient denies any his tory of ulcerative colitis or Crohn's disease. He had a CT of the abdomen and colon with contrast reporting diffuse colonic wall thickening with associated edema. Findings are most likely related to underlying infectious/inflammatory colitis. Gastroenterology was consulted for colitis. Patient states he is continuing to have diarrhea about every hour however much smaller amounts. He states diarrhea started he then started having rectal bleeding and blood in his stool on Tuesday and came into the emergency department for further evaluation. He states that the bleeding has stopped at this time. He did have associated abdominal pain which is improving mostly no cramping. No nausea or vomiting. Does not recall any sick contacts. No history of colonoscopy. He was started on IV Flagyl. He has been afebrile. No leukocytosis. Hemoglobin stable at 16 05/03/2023 Today patient is seen and examined as a follow-up. He was tested for COVID-19 and PCR came back positive. He states diarrhea has improved he is only going about every 6 hours and still less amount. No bleeding. Abdominal pain improved, no nausea or vomiting. Tolerating full liquid diet. He has been afebrile. Objective - Vital Signs Vital signs: Vital Signs Temp 97.7 F 05/03/23 07:00 Pulse 68 05/03/23 07:00 Resp 16 05/03/23 07:00 BP 112/69 05/03/23 07:00 Pulse Ox 98 05/03/23 07:00 FiO2 Intake & Output 05/02/23 05/03/23 05/03/23 18:59 06:59 18:59 Intake Total 850 Balance 850 Intake: Oral 850 Other: Voiding Method Toilet Toilet # Voids 2 # Bowel Movements 3 - Exam General appearance: The patient is alert, oriented, appears in no acute distress. HET: Head is normocephalic and atraumatic. Conjunctiva pink. Sclera anicteric. Neck: Supple without lymphadenopathy. Abdomen: Soft, nontender, nondistended with bowel sounds. No guarding or rigidity. Extremities: Normal skin color and turgor. No pedal edema Skin: No rashes, no jaundice Neurological: No focal deficits. Alert and oriented. - Labs CBC & Chem 7: 05/02/23 07:34 05/02/23 07:34 Labs: Abnormal Lab Results - Last 24 Hours (Table) 05/02/23 05/02/23 05/02/23 Range/Units 07:34 07:34 22:17 Monocytes # 1.19 H (0.20-1.00) X 10*3/uL BUN/Creatinine Ratio 9.00 L (12.00-20.00) Ratio Albumin/Globulin Ratio 1.58 L (1.60-3.17) Ratio SARS-CoV-2 (PCR) Detected A (Not Detectd) Assessment and Plan (1) Colitis Narrative/Plan: 37-year-old male presenting with acute onset abdominal cramping and pain and diarrhea followed by bloody diarrhea x 1 day duration. He has had ongoing diarrhea for the last 3 to 4 days, occurring hourly however starting to improve. He was started on IV Flagyl. No nausea or vomiting, he is afebrile and no leukocytosis. Unclear etiology however likely infectious as to acute onset no history of inflammatory bowel disease. Symptoms are improving would recommend continuing IV antibiotic with Flagyl. Increasing diet slowly. C. difficile negative. Stool cultures collected and pending. COVID PCR positive, likely infectious colitis related to COVID. Symptoms impro ving. No plans for endoscopic evaluation. Can continue Flagyl. Current Visit: Yes Status: Acute Code(s): K52.9 - NONINFECTIVE GASTROENTERITIS AND COLITIS, UNSPECIFIED SNOMED Code(s): 23965459 Plan: 1. Continue symptomatic and supportive care 2. Continue IV Flagyl, recommend oral Flagyl for discharge for 5 more days 3. Advance to low fiber, low-fat diet 4. C. difficile and stool cultures ordered 5. No plans on endoscopic evaluation at this time 6. If symptoms continue to improve patient can tolerate diet patient can likely be discharged later today Thank you for this consultation, we will continue to follow. Dr. Tavia Aponte I agree with the dictator's note, documented as a scribe by Viv Nguyen.
--- NOTE | 2023-05-03 11:54 | P.DS ---
Providers Date of admission: 05/01/23 15:42 Expected date of discharge: 05/03/23 Attending physician: Chun Barr MD Consults: 05/01/23 15:42 Consult Physician Routine Consulting Provider: Joycelyn Aponte Consult Reason/Comments: colitis Do you want consulting provider notified?: Yes, Notify in am Primary care physician: Dewey Hays [facility] Course: Discharge diagnoses; Acute colitis COVID-19 infection Hypothyroidism Hospital course; patient 37-year-old gentleman past medical significant for hypothyroidism from the ER because of abdominal pain. Patient stated the symptoms started 3 days ago when he started experiencing cramping abdominal pain. Abdominal pain was generalized, associated with multiple bouts of diarrhea, patient was complaining of blood in the stools.. There was complaint of fever but no chills. Denied any nausea or vomiting. There was no complaint of chest pain or shortness of breath. No complaint of sick contacts. Because of the symptoms, patient went to the ER Initial lab work done in the ER showed WBC 8.2, hemoglobin 16.6, platelet count 153, sodium 137, calcium 5.1, BUN 13, creatinine 0.93, glucose 91, CT abdominal pelvis done showed diffuse colonic wall thickening with associated edema, associated infectious colitis Patient admitted to internal medicine service 05/03. Patient seen and examined. Patient diarrhea slightly improved. COVID-19 was positive. GI recommended no endoscopy at this time, patient to be discharged on oral antibiotics PHYSICAL EXAMINATION: GENERAL: The patient is alert and oriented x3, not in any acute distress. Well developed, well nourished. HEENT: Pupils are round and equally reacting to light. EOMI. No scleral icterus. No conjunctival pallor. Normocephalic, atraumatic. No pharyngeal erythema. No thyromegaly. CARDIOVASCULAR: S1 and S2 present. No murmurs, rubs, or gallops. PULMONARY: Chest is clear to auscultation, no wheezing or crackles. ABDOMEN: Soft, nontender, nondistended, normoactive bowel sounds. No palpable organomegaly. MUSCULOSKELETAL: No joint swelling or deformity. EXTREMITIES: No cyanosis, clubbing, or pedal edema. NEUROLOGICAL: Gross neurological examination did not reveal any focal deficits. SKIN: No rashes. Dictation was produced using [employer] software. please excuse any grammatical, word or spelling errors. Patient Condition at Discharge: Good Plan - Discharge Summary New Discharge Prescriptions: No Action Testosterone Cypionate [Depo-Testosterone] 100 mg IM MOFR Liothyronine Sodium 25 mcg PO DAILY Levothyroxine Sodium 100 mcg PO DAILY Anastrozole [Arimidex] 1 mg PO [facility] Discharge Medication List Levothyroxine Sodium 100 mcg PO DAILY 01/31/23 [History] Liothyronine Sodium 25 mcg PO DAILY 01/31/23 [History] Anastrozole [Arimidex] 1 mg PO [facility] 05/01/23 [History] Testosterone Cypionate [Depo-Testosterone] 100 mg IM MOFR 05/01/23 [History] Follow up Appointment(s)/Referral(s): Dewey Hays DO [Primary Care Provider] - 1-2 days
== END 2023-05-03 12:30 | disposition home or self-care (01) ==
LOC: EC 10:57 → 6NMEDSUR 15:42
PROVIDERS: ADMIT Internal Medicine; ATTEND Internal Medicine
DX: K52.9 Noninfective gastroenteritis and colitis, unspecified (principal); U07.1 COVID-19; E29.1 Testicular hypofunction; E03.9 Hypothyroidism, unspecified; M43.8X4 Other specified deforming dorsopathies, thoracic region; Z79.811 Long term (current) use of aromatase inhibitors; Z79.890 Hormone replacement therapy; Z88.0 Allergy status to penicillin; Z88.1 Allergy status to other antibiotic agents
CPT/HCPCS: 96376 ×3; 96361 ×3; 96365; 96375; 99285; 36415; 80053 ×2; 82150; 83690; 85025 ×2; 85610; 85730; 87324; 87045; 87046; 87636; 74177; G0378 ×3; C9113 ×3; Q9967; J1836